=== PATIENT | female | born 1955 | race Caucasian/White ===

== ENCOUNTER 2019-06-05 09:17 | Outpatient (CLI) | payer OTHER, MEDICARE, SELFPAY ==
--- NOTE | 2019-06-05 09:25 | MM_ITS ---
WS: [id number] DIAGNOSTIC RIGHT DIGITAL MAMMOGRAM WITH CAD RIGHT breast ultrasound, limited HISTORY: CYST OF RT BREAST COMPARISON: 12/08/2018, 11/09/2018, 10/05/2017 Technique: CC, MLO and ML views. Spot compression RIGHT CC and MLO. Breast composition: The breasts are heterogeneously dense, which may obscure small masses. Irregular asymmetry in the upper outer quadrant of the RIGHT breast is less dense on the prior study. There is some very mild parenchymal thickening. Benign calcifications. Breast arterial calcifications. RIGHT breast ultrasound, limited At 10:00, one centimeters from the nipple is a hypoechoic nodule measuring 5 x 4 x 4 mm. No through-t ransmission. No change in size or appearance since 12/08/2018. This does not correspond in location to the previously described asymmetry. MM/[place] [id number] IMPRESSION: BI-RADS: 3-Probably Benign FOLLOW UP: 6 Month Follow-up Patient to return for annual mammogram in November 2019. The asymmetry in the upp er-outer quadrant of the RIGHT breast should be reevaluated. Ultrasound should be performed more towards the axillary tail and and not at the areola as on prior studies.
== END 2019-06-05 09:18 | disposition home or self-care (01) ==
LOC: RADSHAW 09:20
PROVIDERS: Family Provider Family Medicine; PCP Family Medicine; Visit Provider Family Medicine
DX: N60.01 Solitary cyst of right breast (principal); N64.89 Other specified disorders of breast
CPT/HCPCS: 76642; 77065

== ENCOUNTER 2019-12-25 10:18 | Outpatient (CLI) | payer OTHER, MEDICARE, SELFPAY ==
--- NOTE | 2019-12-25 10:49 | MM_ITS ---
WS: [id number] BILATERAL DIGITAL DIAGNOSTIC MAMMOGRAM MAMMOGRAPHY WITH CAD CLINICAL INFORMATION: RT BR LUMP COMPARISON: June 05, 2019 TECHNIQUE: Bilateral CC, MLO, and ML views. FINDINGS: The breasts are composed of heterogeneous fibroglandular density, which can limit the detection of sm all underlying mass lesions. Punctate and lucent centered calcifications. Vascular calcification. Sta ble asymmetry upper outer right breast appears unchanged since . Ultrasound is pending. Left breast is unchanged in appearance. ULTRASOUND BREAST RIGHT TECHNIQUE: Ultrasound right breast focused area of concern. CLINICAL INFORMATION: RT BR LUMP COMPARISON: and June 05, 2019 FINDINGS: Again seen is the hypoechoic lesion at the 10:00 position which is unchanged in appearance since the previous examination. Today this measures 4.7 x 2.0 5.1 mm. This also appears unchanged since . This is probably benign and Recommend additional six-month follow-up to confirm stability. MM/[place] [id number] IMPRESSION: BI-RADS: 3-Probably Benign FOLLOW UP: 6 Month Follow-up RECOMMEND ADDITIONAL SIX-MONTH FOLLOW-UP RIGHT DIAGNOSTIC MAMMOGRAM AND ULTRASO UND TO CONFIRM STABILITY
--- NOTE | 2019-12-25 11:04 | US_ITS ---
WS: [id number] BILATERAL DIGITAL DIAGNOSTIC MAMMOGRAM MAMMOGRAPHY WITH CAD CLINICAL INFORMATION: RT BR LUMP COMPARISON: June 05, 2019 TECHNIQUE: Bilateral CC, MLO, and ML views. FINDINGS: The breasts are composed of heterogeneous fibroglandular density, which can limit the detection of sm all underlying mass lesions. Punctate and lucent centered calcifications. Vascular calcification. Sta ble asymmetry upper outer right breast appears unchanged since . Ultrasound is pending. Left breast is unchanged in appearance. ULTRASOUND BREAST RIGHT TECHNIQUE: Ultrasound right breast focused area of concern. CLINICAL INFORMATION: RT BR LUMP COMPARISON: and June 05, 2019 FINDINGS: Again seen is the hypoechoic lesion at the 10:00 position which is unchanged in appearance since the previous examination. Today this measures 4.7 x 2.0 5.1 mm. This also appears unchanged since . This is probably benign and Recommend additional six-month follow-up to confirm stability. US/US breast RT limited* [id number] IMPRESSION: BI-RADS: 3-Probably Benign FOLLOW UP: 6 Month Follow-up RECOMMEND ADDITIONAL SIX-MONTH FOLLOW-UP RIGHT DIAGNOSTIC MAMMOGRAM AND ULTRASO UND TO CONFIRM STABILITY
== END 2019-12-25 10:19 | disposition home or self-care (01) ==
LOC: RADSHAW 10:24
PROVIDERS: PCP Family Medicine; Visit Provider Family Medicine
DX: R92.8 Other abnormal and inconclusive findings on diagnostic imaging of breast (principal); N63.11 Unspecified lump in the right breast, upper outer quadrant
CPT/HCPCS: 76642; 77066

== ENCOUNTER → 2020-01-08 11:05 | Outpatient (BNVA) | payer OTHER, MEDICARE, SELFPAY | PROVIDERS: Family Provider Family Medicine; PCP Family Medicine; Visit Provider Internal Medicine | DX: R76.8 Other specified abnormal immunological findings in serum (principal); Z79.899 Other long term (current) drug therapy; Z11.59 Encounter for screening for other viral diseases; Z11.1 Encounter for screening for respiratory tuberculosis; D86.9 Sarcoidosis, unspecified; M32.9 Systemic lupus erythematosus, unspecified; M19.90 Unspecified osteoarthritis, unspecified site; I10 Essential (primary) hypertension; Z87.891 Personal history of nicotine dependence | CPT/HCPCS: 36415; 99204 ==

== ENCOUNTER 2020-01-08 13:22 | Outpatient (CLI) | payer OTHER, MEDICARE, SELFPAY ==
--- NOTE | 2020-01-08 13:29 | XR_ITS ---
WS: [id number] Left hand, 2 views, 01/08/2020 Clinical Data: hand pain Comparison: None. Findings: No fractures or dislocations are seen. The soft tissues are unremarkable. There is osteoarthritic chhaya nge of the DIP joints of the second through fifth fingers. No periarticular demineralization or calci fications are noted. 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
--- NOTE | 2020-01-08 13:29 | XR_ITS ---
WS: [id number] Right foot, 2 views, 01/08/2020 Clinical Data: foot pain Comparison: None. Findings: No fractures or dislocations are seen. No bone destruction or erosion is noted. There is osteoarthrit ic change at the right first MP joint.There is a plantar spur. 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
--- NOTE | 2020-01-08 13:29 | XR_ITS ---
WS: [id number] Right hand, Clinical Data: hand pain Comparison: None. Findings: No fractures or dislocations are seen. The soft tissues are unremarkable. There is osteoa rthritic change of the DIP joints of the second through fifth fingers of the right hand. No periartic ular demineralization is seen. There is a small calcification along the ulnar side of the right third PIP joint. XR/XR hand RT 2V [id number] Impression: Osteoarthritis of the second through fifth DIP joints of the right hand
--- NOTE | 2020-01-08 13:29 | XR_ITS ---
WS: [id number] Left foot, 2 views, 01/08/2020 Clinical Data: foot pain Comparison: None. Findings: No fractures or dislocations are seen. No bone destruction or erosion is noted. The joint spaces and soft tissues are normal. There is a small plantar spur. XR/XR foot LT 2V [id number] Impression: Negative left foot.
== END 2020-01-08 13:23 | disposition home or self-care (01) ==
PROVIDERS: Family Provider Family Medicine; PCP Family Medicine; Visit Provider Internal Medicine
DX: R76.8 Other specified abnormal immunological findings in serum (principal); D86.9 Sarcoidosis, unspecified; M32.9 Systemic lupus erythematosus, unspecified; M19.042 Primary osteoarthritis, left hand; M19.041 Primary osteoarthritis, right hand; M19.071 Primary osteoarthritis, right ankle and foot; M79.672 Pain in left foot
CPT/HCPCS: 73120; 73620; 80053; 82955; 85025; 85651; 86140; 86431; 86480; 86704; 86803; 87340

== ENCOUNTER 2020-01-19 09:38 | Outpatient (CLI) | payer OTHER, MEDICARE, SELFPAY ==
--- NOTE | 2020-01-19 09:48 | FL_ITS ---
WS: [id number] DOUBLE CONTRAST UPPER GI EXAMINATION HISTORY: R13.10 Dysphagia, unspecified COMPARISON: None available. FLUOROSCOPY TIME: 1.7 minutes. Relay Operator film reveals normal distribution of gas throughout the GI tract. Mild constipation. No suspicio us masses or calcifications. Barium mixture traversed normally throughout the esophagus. No filling defects within the stomach. Du odenal bulb was normally distensible and pliable. Patient swallowed the barium tablet without difficu lty. Very minimal amount of reflux into the distal esophagus. Small reducible hiatal hernia. FL/FL upper GI w air* [id number] IMPRESSION: 1. Small reducible hiatal hernia. 2. Minimal gastroesophageal reflux.
== END 2020-01-19 09:39 | disposition home or self-care (01) ==
LOC: RAD 09:44
PROVIDERS: PCP Family Medicine; Visit Provider Surgery
DX: R13.10 Dysphagia, unspecified (principal); K44.9 Diaphragmatic hernia without obstruction or gangrene
CPT/HCPCS: 74246

== ENCOUNTER → 2020-01-25 15:21 | Outpatient (BNVA) | payer OTHER, MEDICARE, SELFPAY | PROVIDERS: PCP Family Medicine; Visit Provider Surgery | DX: Z11.59 Encounter for screening for other viral diseases (principal); R13.10 Dysphagia, unspecified | CPT/HCPCS: 87635 ==

== ENCOUNTER 2020-01-31 07:37 | Day surgery (SDC) | payer OTHER, MEDICARE, SELFPAY ==
[2020-01-26 09:38] VITALS: BMI 25.6
[2020-01-31 08:09] VITALS: BP 184/84; PULSE 70; RESP 18; O2SAT 100
--- NOTE | 2020-01-31 08:26 | W.PM.OPSUD ---
Surgery/Procedure H&P Update DATE OF PROCEDURE: January 31, 2020 DATE H&P PERFORMED: 01/01/20 H&P UPDATE INFORMATION: I have reviewed H&P completed within last 30 days, I have examined patient prior to procedure, No changes to prior documentation and Changes to prior documentation as noted here CHANGES TO PREVIOUS DOCUMENTATION: Upper GI study: 1. Small reducible hiatal hernia. 2. Minimal gastroesophageal reflux. PREOP DIAGNOSIS: Difficulty in swallowing PRIMARY INDICATION FOR PROCEDURE: The same PLANNED PROCEDURE: Operation Date: 01/31/20 09:15 Proposed Procedures p EGD 92423 R13.10(Not Applicable) - Clinton Thompson MD
--- NOTE | 2020-01-31 08:34 | ANES.PREANE2 ---
Pre-Anesthetic Assessment Pre-Anesthetic Assessment: Height/Weight: Height 1.57 m Weight 63.503 kg Pulse Resp BP Pulse Ox 70 18 184/84 100 01/31/20 08:09 01/31/20 08:09 01/31/20 08:09 01/31/20 08:09 Preop Diagnosis: Difficulty in swallowing Proposed Procedure: Operation Date: 01/31/20 09:15 Proposed Procedures p EGD 39810 R13.10(Not Applicable) - Clinton Thompson MD Familial anesthetic complications: None Was Beta Micheline taken within 24 hours: N/A Last intake: Intake Last Liquid Date 01/30/20 Last Liquid Time 15:30 Last Solid Date 01/30/20 Last Solid Time 20:30 Social: Social History: No alcohol and No tobacco Exam: Pre-Anes Outpt Exam: alert, oriented x 3, clear to auscultation bilaterally and regular rate & rhythm Airway: Cervical ROM: WNL MP: 2 Dentition: Full CV/HEM: CV/HEM: HTN Hepatic: Comments: high lfts GI: GI: GERD Anesthetic Plan: ASA status: 1 Anesthesia: MAC Risk of > 500 ml blood loss (7ml/kg in children): No PFSH Anesthesia PFSH: Medical History (Updated 01/08/20 @ 11:52 by Wendy Kern MD) Arthritis Family History Denies family history of Anesthesia complication Bleeding disorder Social History Smoking and tobacco status: former smoker Quit status (tobacco): has quit using tobacco Former quit date comment: 41 years ago Alcohol intake: never Adopted: No Caregiver/support person: Yes Lives independently: Yes Household members: spouse Housing: House Marital status: Current occupational status: employed Pets and animals: No History of recent travel: No Sexually active: No Current gender identity: Female Lore/Anabaptism: Sabianist Data Anesthesia Cardiac Studies: No Data to Display
[2020-01-31 09:57] VITALS: BP 126/65; PULSE 61; RESP 16; TEMP 36.4; O2SAT 99
[2020-01-31 10:15] VITALS: BP 150/84; PULSE 60; RESP 16; O2SAT 99
--- NOTE | 2020-01-31 10:25 | ANE.PACU2 ---
Inpatient post-anesthesia follow up: Airway intact: Yes Vital signs: Temperature 97.5 F Pulse Rate 60 Respiratory Rate 16 Blood Pressure 150/84 Pulse Oximetry 99 Oxygen Delivery Me thod Room Air Oxygen Flow Rate 2 Fraction of Inspir ed Oxygen Hydration adequate: Yes Nausea and vomiting: No Pain level: 1 Mental status: Baseline
[2020-01-31] MEDS: sodium chloride 0.9% 1,000 ML 30 ML IV (10:29)
[2020-02-01 06:25] LABS: H. Pylori / CLO Test Negative
== END 2020-01-31 10:25 | disposition home or self-care (01) ==
PROVIDERS: PCP Family Medicine; Visit Provider Surgery
PROC: 0DJ08ZZ Inspection of Upper Intestinal Tract, Via Natural or Artificial Opening Endoscopic (ICD-10-PCS; CPT 43235; principal; 2020-01-31 09:15)
DX: R13.10 Dysphagia, unspecified (principal); K21.9 Gastro-esophageal reflux disease without esophagitis; K44.9 Diaphragmatic hernia without obstruction or gangrene; K29.70 Gastritis, unspecified, without bleeding; I10 Essential (primary) hypertension; Z87.891 Personal history of nicotine dependence
CPT/HCPCS: 12345; 43239; 87077; J2704; J7030

== ENCOUNTER → 2020-02-15 10:35 | Outpatient (BNVA) | payer OTHER, MEDICARE, SELFPAY | PROVIDERS: PCP Family Medicine; Visit Provider Internal Medicine | DX: R76.8 Other specified abnormal immunological findings in serum (principal); M19.041 Primary osteoarthritis, right hand; M19.042 Primary osteoarthritis, left hand; M19.071 Primary osteoarthritis, right ankle and foot; M19.072 Primary osteoarthritis, left ankle and foot; R74.01 Elevation of levels of liver transaminase levels; Z87.891 Personal history of nicotine dependence | CPT/HCPCS: 99214 ==

== ENCOUNTER 2021-07-04 08:52 | Outpatient (CLI) | payer MEDICARE, SELFPAY ==
--- NOTE | 2021-07-04 09:04 | MM_ITS ---
WS: [id number] VIEWS: MLO and CC views both breasts. 3D digital tomosynthesis is also included in this exam. Comparison made with prior exam of 12/25/2019. Findings: There was no sign of mass, architectural distortion or suspicious calcification in either breast. He terogeneously dense MM/[place] [id number] Impression: BI-RADS: 2-Benign FOLLOW-UP: 1 Year Follow-up This mammogram was also analyzed by the Computer Aided Detection System R2 Imag e Sales Receptionist.
== END 2021-07-04 08:53 | disposition home or self-care (01) ==
LOC: RADSHAW 08:56
PROVIDERS: PCP Family Medicine; Visit Provider Family Medicine
DX: Z12.31 Encounter for screening mammogram for malignant neoplasm of breast (principal)
CPT/HCPCS: 77063; 77067

== ENCOUNTER 2022-08-06 07:43 | Outpatient (CLI) | payer MEDICARE, SELFPAY ==
--- NOTE | 2022-08-06 07:55 | MM_ITS ---
WS: [id number] Bilateral screening 3D tomosynthesis digital mammogram, 08/06/2022 Clinical Data: SCREENING Comparison: 07/04/2021, 12/25/2019, 06/05/2019, 12/08/2018, 11/09/2018, 10/05/2017, 07/14/2016, 03/28/2015. Findings: The breast parenchymal pattern shows heterogeneous density. No spiculated masses or clustered calcifi cations are seen. There are no secondary signs of carcinoma. MM/[place] [id number] Impression: 1. Negative bilateral mammogram unchanged. 2. Recommend annual screening mammograms. BIRADS: 1-Negative FOLLOW UP: 1 Year Follow-up The CAD food and beverage checker was used.
== END 2022-08-06 07:44 | disposition home or self-care (01) ==
LOC: RAD 07:50
PROVIDERS: PCP Family Medicine; Visit Provider Family Medicine
DX: Z12.31 Encounter for screening mammogram for malignant neoplasm of breast (principal)
CPT/HCPCS: 77063; 77067

== ENCOUNTER 2023-05-05 12:22 | Outpatient (CLI) | payer MEDICARE, SELFPAY ==
[2023-05-05 12:57] VITALS: BMI 24.1
--- NOTE | 2023-05-05 13:00 | ECG_ITS ---
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 Interpretive Statements NAME OF STUDY: TREADMILL STRESS TEST INDICATION: [Chest Pain on Exertion] EXERCISE DATA: The patient was exercised by Prateek protocol. Baseline heart rate was 86 beats per minute. Baseline blood pressure was 180/100 millimeters of mercury. Target heart rate was 127 beats per minute. Maximum heart rate achieved was 148, which was 116% of the target heart rate. Maximum blood pressure was 164/84 millimeters of mercury. Total exercise time was 9 minutes 42 seconds. Maximum METs achieved was 13.5. The reason for ending the test was completion of protocol. The patient complained of shortness of breath during the stress test, which then resolved at the end of the test. ELECTROCARDIOGRAM: BASELINE: Showed sinus rhythm, normal axis, no significant ST-T changes at the baseline noted. [] EXERCISE: At the peak exercise level, [] No significant ST-T changes suggestive of ischemia noted. [] RECOVERY: During the recovery period, heart rate dropped appropriately. No significant ST-T changes in the recovery suggestive of ischemia noted. [] CONCLUSION: 1. Exercise capacity excellent. 2. Heart rate response was appropriate 3. Blood pressure response was appropriate 4. Symptoms not suggestive of ischemia. 5. Stress test does not indicate ischemia Electronically Signed On 05-09-2023 13:09:05 EVENT DESIGNER by Chapito Garza M.D. [email or web address]
[2023-05-05 14:16] VITALS: BP 180/82; PULSE 72
== END 2023-05-05 12:23 | disposition home or self-care (01) ==
PROVIDERS: PCP Family Medicine; Visit Provider Nurse Practitioner Family
DX: R07.89 Other chest pain (principal)
CPT/HCPCS: 93017